=== PATIENT | female | born 1945 | race Caucasian/White ===

== ENCOUNTER 2019-09-26 02:20 | Observation (INO) | payer BC, OTHER ==
[~2019-09-26] VITALS: Ht 157.5 cm; Wt 62.6 kg
[~2019-09-26 02:20] MED LIST: ADVAIR 100-501 EACH; AMLODIPINE BESY10 MG PO; ESIDRIX25 MG PO; GLIMEPIRIDE2 MG PO; LEVOCETIRIZINE D5 MG PO; METFORMIN HCL500 M1; METFORMIN HCL500 M2 PO; METOPROLOL SUCC50 MG PO; RAMIPRIL10 MG; SIMVASTATIN20 MG PO
--- OUTSIDE RECORDS SUMMARY | 2019-09-26 02:23 | XMS REPORT ---
Author Author [facility] Address Unknown Phone Unavailable Care Team Providers Care Group Exercise Class Instructor Name Role Phone Sallie GIBBS Unavailable Unavailable Payers Payer Name Policy Type Policy Number Effective Date Expiration Date Problems This patient has no known problems. Allergies, Adverse Reactions, Alerts Allergy Name Allergy Type Status Severity Reaction(s) Onset Date Inactive Date Treating Clinician Comments No Known Allergies DA Active U 2019-01-05 00:00:00 No Known Contrast Allergies DA Active U 2007-12-11 00:00:00 No Known Drug Allergies DA Active U 2007-12-11 00:00:00 No Known Food Allergies DA Active U 2007-12-11 00:00:00 No Known Other Allergies DA Active U 2007-12-11 00:00:00 Medications This patient has no known medications. Results Test Description Test Time Test Comments Text Results Atomic Results Result Comments GLUBED 2019-01-06 05:49:00 GLUBED (test code=GLUBED) 147 mg/dL 74-106 Performed by certified refinery operator at [facility] ([facility]3] [id number] 01:38:00* Test Item Value Reference Range Comments GLUBED (test code=GLUBED) 223 mg/dL 74-106 Performed by certified refinery operator at [facility] ([facility]3] [id number] 00:20:00* Test Item Value Reference Range Comments GLUBED (test code=GLUBED) 152 mg/dL 74-106 Performed by certified refinery operator at [facility]3] [id number] 22:50:00* Test Item Value Reference Range Comments GLUNIKOLAS (test code=GLUBED) 87 mg/dL 74-106 Performed by certified refinery operator at [facility]3] - XR CHEST 1 [id number] 22:20:00 FAX: Barber Lovelace MD [phone] [place]: St: REG Name: RACHEL COHEN [facility] [place] : [birth year] Age/S: 73/F [address] [facility] Unit #: [id number] Loc: [place] [address] Phys: Barber Lovelace MD Acct: [id number] Dis Date: Status: REG ER PHONE #: [phone] Exam Date: 01/05/20192199 FAX #: [phone] Reason: Altered Mental Status EXAMS: CPT CODE: [id number] XR CHEST 1 V [id number] REASON FOR EXAM: Altered M ental Status EXAM ORDER DATE: 01/05/2019 9:27 PM Samuel lam M.D.: Barber Lovelace MD PROCEDURE: - XR CHEST 1 V COMPARISON: FINDINGS: Portable AP frontal view of the chest obtained at 10:00 PM shows clear lungs. There is no evidence of consolidat ion. There is no evidence of effusion. The heart size is within normal doan its. Pulmonary vasculatures are unremarkable. IMPRESSION: No active disease. Electronically Signed by Salvatore Iraheta on 019 at 2220 Reported and signed by: Sebastian Iraheta M.D. CC: Barber Lovelace MD Tech nologist: JAKE CRUZ Trnscrd Date/Ti me/By: 01/05/2019 (2220) : By: WalterL Orig Print D/T: S: 01/05/2019 (5003) PAGE 1 Signed Report [id number] 22:13:00* Test Item Value Reference Range Comments GLUBED (test code=GLUBED) 50 mg/dL 74-106 Performed by certified refinery operator at [facility]3] COMPREHENSIVE METABOLIC [id number] 21:57:00* Test Item Value Reference Range Comments SODIUM (test code=NA) 142 mmol/L 136-145 POTASSIUM (test code=K) 3.7 mmol/L 3.5-5.1 CHLORIDE (test code=CL) 108.0 mmol/L 98-107 CARBON DIOXIDE (test code=CO2) 23.0 mmol/L 21-32 ANION GAP (test code=GAP) 14.7 10-20 GLUCOSE (test code=GLU) 55 mg/dL 74-106 BLOOD UREA NITROGEN (test code=BUN) 20 mg/dL 7-18 GLOMERULAR FILTRATION RATE (test code=GFR) 49 mL/min >=60 Estimated GFR by using Modified MDRD formula.Chronic kidney disease is defined as either kidney damageor GFR <60 mL/min/1.73 m2 for >3 months. CREATININE (test code=CREAT) 1.10 mg/dL 0.55-1.02 Note change in reference range due to change in reagent. BUN/CREATININE RATIO (test code=BUN/CREA) 17.5 10-20 TOTAL PROTEIN (test code=PROT) 8.2 gram/dL 6.4-8.2 ALBUMIN (test code=ALB) 3.5 g/dL 3.4-5.0 GLOBULIN (test code=GLOB) 4.7 gram/dL 2.7-4.2 ALBUMIN/GLOBULIN RATIO (test code=A/G) 0.7 0.75-1.50 CALCIUM (test code=CA) 8.7 mg/dL 8.5-10.1 BILIRUBIN TOTAL (test code=BILT) 0.20 mg/dL 0.0-1.0 SGOT/AST (test code=AST) 18 IUnit/L 15-37 SGPT/ALT (test code=ALT) 23 IUnit/L 12-78 ALKALINE PHOSPHATASE TOTAL (test code=ALKP) 53 IUnit/L 45-117 Note change in reference range due to change in reagent. CPK-MB [id number] 21:57:00* Test Item Value Reference Range Comments CREATINE KINASE (CK) (test code=CK) 87 IUnit/L 26-208 CKMB (test code=CKMBT) 1.5 ng/mL 0-6.0 RELATIVE % INDEX (test code=REL%) 1.72 % 0.00-2.50 "If the total CK is elevated, the CKMB Fraction must beinterpreted as a Relative % Index, Normal is less than 2.5%"NOTE: Relative % Index is not valid with a normal total CK. [id number] 21:57:00* Test Item Value Reference Range Comments TROPONIN-I (test code=TROPI) <0.015 ng/mL 0-0.045 - CT HEAD/BRAIN W/O [id number] 21:50:00 Name: RACHEL AGUIRRE [facility] [place] [place] : 1945 Age/S: 73 / F [address] [facility] Unit #: [id number] Loc: [place] [address] Phys: Barber Lovelace MD Acct: [id number] Dis Date: Status: PRE ER PHONE #: [phone] Exam Date: 01/05/2019 2140 FAX #: [phone] Reason: Altered Mental Status EXAMS: CPT CODE: [id number] CT HEAD/BRAIN W/O CONT [id number] REASON FOR EXAM: Altered Mental Status EXAM ORDER DATE: 01/05/2019 9:27 PM Ordering MHenny: Barber Lovelace MD PROCEDURE: - CT HEAD/BRAIN W/O CONT COMPARISON: FINDINGS: CT images of the brain were obtained without IV contrast. Dose reduction techniques were applied. Mild patchy low densities appearance of the paraventricular region noted consistent with nonspecific white matter disease. The headley-white matter delineation is unremarkable. The ventricles, cisterns, and sulci are unremarkable. There is no evidence of hemorrhage, mass, mass effect. There is no evidence of acute or old infarct. The calvarium is intact. IMPRESSION: Nonspecific deep white matter disease. No acute findings. at 2150 Reported and signed by: Sebastian Iraheta M.D. CC: Barber Lovelace MD Technologist:Shantelle Ortiz RT(R); SAMIRA Shelby CTDI: DLP: Trnscb Date/Time: 01/05/2019 (2149) [email or web address] Orig Print D/T: S: 01/05/2019 (353) CTDI: LINNETTE: PAGE 1 Signed Report PROTHROMBIN [id number] 21:49:00* Test Item Value Reference Range Comments PROTHROMBIN TIME PATIENT (test code=PTP) 10.4 seconds 9.0-14.0 INTERNATIONAL NORMAL RATIO (test code=INR) 0.9 0.8-1.2 The therapeutic range for oral anticoagulant therapy formost indications is an international normalized ratio (INR)of between 2.0 and 3.0. The recommended therapeutic INRrange for various clinical situations is listed below: Clinical Situation INR range Pulmonary e mbolism treatment (2.0-3.0)Venous thrombosis treatmentVenous thrombosis prophylaxis (high risk surgery)Prevention of systemic embolism from: Acute myocardial infarction Valvular heart disease Atrial fibrillation Mechanical prosthetic heart valves (2.5-3.5) THROMBOPLASTIN TIME [id number] 21:49:00* Test Item Value Reference Range Comments THROMBOPLASTIN TIME PARTIAL (test code=PTT) 30.9 seconds 25.0-36.5 COMPREHENSIVE METABOLIC [id number] 21:45:00* Test Item Value Reference Range Comments SODIUM (test code=NA) 142 mmol/L 136-145 POTASSIUM (test code=K) 3.7 mmol/L 3.5-5.1 CHLORIDE (test code=CL) 108.0 mmol/L 98-107 CARBON DIOXIDE (test code=CO2) mmol/L 21-32 ANION GAP (test code=GAP) 10-20 GLUCOSE (test code=GLU) mg/dL 74-106 BLOOD UREA NITROGEN (test code=BUN) mg/dL 7-18 GLOMERULAR FILTRATION RATE (test code=GFR) mL/min >=60 CREATININE (test code=CREAT) mg/dL 0.55-1.02 BUN/CREATININE RATIO (test code=BUN/CREA) 10-20 TOTAL PROTEIN (test code=PROT) gram/dL 6.4-8.2 ALBUMIN (test code=ALB) g/dL 3.4-5.0 GLOBULIN (test code=GLOB) gram/dL 2.7-4.2 ALBUMIN/GLOBULIN RATIO (test code=A/G) 0.75-1.50 CALCIUM (test code=CA) mg/dL 8.5-10.1 BILIRUBIN TOTAL (test code=BILT) mg/dL 0.0-1.0 SGOT/AST (test code=AST) IUnit/L 15-37 SGPT/ALT (test code=ALT) IUnit/L 12-78 ALKALINE PHOSPHATASE TOTAL (test code=ALKP) IUnit/L 45-117 CPK-MB [id number] 21:45:00* Test Item Value Reference Range Comments CREATINE KINASE (CK) (test code=CK) IUnit/L 26-208 CKMB (test code=CKMBT) ng/mL 0-6.0 RELATIVE % INDEX (test code=REL%) % 0.00-2.50 [id number] 21:45:00* Test Item Value Reference Range Comments TROPONIN-I (test code=TROPI) ng/mL 0-0.045 CBC W/AUTO [id number] 21:37:00* Test Item Value Reference Range Comments WHITE BLOOD CELL (test code=WBC) 8.6 K/mm3 4.5-12.5 RED BLOOD CELL (test code=RBC) 4.58 mill/mm3 3.7-5.2 HEMOGLOBIN (test code=HGB) 12.2 gram/dL 11.5-15.5 HEMATOCRIT (test code=HCT) 39.1 % 36.0-46.0 MEAN CELL VOLUME (test code=MCV) 85.4 fL 80-98 MEAN CELL HGB (test code=MCH) 26.6 picogram 27.0-33.0 MEAN CELL HGB CONCETRATION (test code=MCHC) 31.2 gram/dL 33.0-36.0 RED CELL DISTRIBUTION WIDTH (test code=RDW) 13.6 % 11.6-16.2 RED CELL DISTRIBUTION WIDTH SD (test code=RDW-SD) 42.5 fL 37.0-51.0 PLATELET COUNT (test code=PLT) 298 K/mm3 150-450 MEAN PLATELET VOLUME (test code=MPV) 10.8 fL 6.7-11.0 NEUTROPHIL % (test code=NT%) 70.5 % 39.0-69.0 IMMATURE GRANULOCYTE % (test code=IG%) 0.6 % 0.0-5.0 LYMPHOCYTE % (test code=LY%) 18.6 % 25.0-55.0 MONOCYTE % (test code=MO%) 7.6 % 0.0-10.0 EOSINOPHIL % (test code=EO%) 2.0 % 0.0-5.0 BASOPHIL % (test code=BA%) 0.7 % 0.0-1.0 NUCLEATED RBC % (test code=NRBC%) 0.0 % 0-0 NEUTROPHIL # (test code=NT#) 6.06 K/mm3 1.8-7.7 IMMATURE GRANULOCYTE # (test code=IG#) 0.05 x10 3/uL 0-0.03 LYMPHOCYTE # (test code=LY#) 1.60 K/mm3 1.0-5.0 MONOCYTE # (test code=MO#) 0.65 K/mm3 0-0.8 EOSINOPHIL # (test code=EO#) 0.17 K/mm3 0.0-0.5 BASOPHIL # (test code=BA#) 0.06 K/mm3 0.0-0.2 NUCLEATED RBC # (test code=NRBC#) 0.00 K/mm3 0.0-0.1 CBC W/AUTO [id number] 21:35:00* Test Item Value Reference Range Comments WHITE BLOOD CELL (test code=WBC) K/mm3 4.5-12.5 RED BLOOD CELL (test code=RBC) mill/mm3 3.7-5.2 HEMOGLOBIN (test code=HGB) 12.2 gram/dL 11.5-15.5 HEMATOCRIT (test code=HCT) 39.1 % 36.0-46.0 MEAN CELL VOLUME (test code=MCV) fL 80-98 MEAN CELL HGB (test code=MCH) picogram 27.0-33.0 MEAN CELL HGB CONCETRATION (test code=MCHC) gram/dL 33.0-36.0 RED CELL DISTRIBUTION WIDTH (test code=RDW) % 11.6-16.2 RED CELL DISTRIBUTION WIDTH SD (test code=RDW-SD) fL 37.0-51.0 PLATELET COUNT (test code=PLT) K/mm3 150-450 MEAN PLATELET VOLUME (test code=MPV) fL 6.7-11.0 NEUTROPHIL % (test code=NT%) % 39.0-69.0 IMMATURE GRANULOCYTE % (test code=IG%) % 0.0-5.0 LYMPHOCYTE % (test code=LY%) % 25.0-55.0 MONOCYTE % (test code=MO%) % 0.0-10.0 EOSINOPHIL % (test code=EO%) % 0.0-5.0 BASOPHIL % (test code=BA%) % 0.0-1.0 NEUTROPHIL # (test code=NT#) K/mm3 1.8-7.7 LYMPHOCYTE # (test code=LY#) K/mm3 1.0-5.0 MONOCYTE # (test code=MO#) K/mm3 0-0.8 EOSINOPHIL # (test code=EO#) K/mm3 0.0-0.5 BASOPHIL # (test code=BA#) K/mm3 0.0-0.2 SCR MAMM BILATERAL AURELIA CAD [id number] 18:54:15 - SCR MAMM BILATERAL AURELIA CAD DIGITALBILATERAL DIGITAL SCREENING MAMMOGRAM 3D/2D WITH CAD: 11/04/2018CLINICAL: Asymptomatic. Digital breast tomosynthesis was performed in addition to routine CC and MLO views. Current mammographic images were evaluated by either a Btarget M-Vu or a InPronto ImageChecker CAD (computer aided detection system). Comparison is made to exams dated 11/15/2010 mammogram, 09/16/2009 mammogram, and 07/11/2009 mammogram - [facility]. There are scattered fibroglandular tissues in both breasts. There are benign calcific ations in both breasts. No suspicious mass, architectural distortion, malignant type calcification, or lymph node abnormality detected. Breast architecture is stable compared to prior exams.IMPRESSION: BENIGNThere is no mammographic evide nce of malignancy. Resume annual screening mammography in one year. Jackie henson/penrad:11/07/2018 18:54:15 [employer] Operator: Lisbeth REYNA, [facility]-FWletter sent: BIRADS 1-2 Normal Mammogram BI-RADS: [address] [facility] [address] [address] Patient Name: RACHEL AGUIRRE MR #: [id number] : 1945 Age/Sex: 71/F Req #: [id number] Adm Physician: Ordered by: AILYN OAKLEY NP Report #: [id number] Location: ER Room/Bed: Procedure: [id number] CT/CT BRAIN WO Exam Date: Exam Time: 1944 REPORT STATUS: Signed History:Fell, hit the head Comparison studies:None Technique: Axial im ages were obtained from the brain and cervical spine. Coronal and sagittal cruz ges reconstructed from the axial data. Intravenous contrast: None Finding s: Scalp/skull: Left frontal scalp laceration. Extra-axial spaces: No masses. No fluid collections. Brain sulci: Mildly prominent. Ventr icles: Mild compensatory dilatation. No hydrocephalus. Parenchyma: Few h ypodensities in the supratentorial white matter are small vessel ischemic hart ges. No masses, hemorrhage, acute or chronic cortical vascular insults. Aditi lar/suprasellar region: No abnormalities. Craniocervical junction: Patent fora men magnum. No Chiari one malformation. Incidental findings: Atheroscler otic calcifications in the carotid siphons . Bilateral cataract surgery change s. Right canal wall down mastoidectomy changes with partial opacification of t he mastoid air cells. Cervical spine CT: Fractures: None. Soft tis sues: No gross abnormalities. Atlantoaxial articulation: Intact. Alignmen t: Normal lordosis. No scoliosis. Cervicomedullary junction: No abnormalities. Patent foramen magnum. Vertebrae: No infection or neoplasm. Degene rative changes: Decreased intervertebral space, bilateral uncinate process hy pertrophy and facet hypertrophy at C5-6 results in no significant canal stenos is and mild bilateral foraminal narrowing. Incidental findings: None IMPRESSION: Head CT: No acute intracranial abnormalities. Left pa rietal scalp laceration. Chronic findings: 1. Mild generalized volume lo ss. 2. Mild supratentorial white matter small vessel ischemic changes. C ervical spine CT: 1. No abnormalities. 2. Cannot exclude ligament, spinal cord and or vascular abnormalities on the basis of this examination. Signed by: DR Diego Teran M.D. on 09/18/2017 9:01 PM Dictated By: DIEGO WHITE MD 00 COPY TO: SADA OAKLEY NP CT CERVICAL SPINE WO [place] [address] Patient Name: RACHEL AGUIRRE MR #: [id number] : 1945 Age/Sex: 71/F Req #: [id number] Adm Physician: Ordered by: AILYN OAKLEY NP Report #: [id number] Location: ER Room/Bed: Procedure: [id number] CT/CT CERVICAL SPINE WO Exam Date: 09/18/17 Exam Time: 1944 REPORT STATUS: Signed History:Fell, hit the head Comparison studies:None Technique: Axial images were obtained from the brain and cervical spine. Coronal and sag ittal images reconstructed from the axial data. Intravenous contrast: None Findings: Scalp/skull: Left frontal scalp laceration. Extra-axial spaces: No masses. No fluid collections. Brain sulci: Mildly prominent. Ventricles: Mild compensatory dilatation. No hydrocephalus. Parenchyma: Few hypodensities in the supratentorial white matter are small vessel ischemic changes. No masses, hemorrhage, acute or chronic cortical vascular insults. Sellar/suprasellar region: No abnormalities. Craniocervical junction: Patent foramen magnum. No Chiari one malformation. Incidental findings: At herosclerotic calcifications in the carotid siphons . Bilateral cataract surge ry changes. Right canal wall down mastoidectomy changes with partial opacifica tion of the mastoid air cells. Cervical spine CT: Fractures: None. Soft tissues: No gross abnormalities. Atlantoaxial articulation: Intact. Alignment: Normal lordosis. No scoliosis. Cervicomedullary junction: No abnor malities. Patent foramen magnum. Vertebrae: No infection or neoplasm. Degenerative changes: Decreased intervertebral space, bilateral uncinate p rocess hypertrophy and facet hypertrophy at C5-6 results in no significant can al stenosis and mild bilateral foraminal narrowing. Incidental findings: None IMPRESSION: Head CT: No acute intracranial abnormalities. Left parietal scalp laceration. Chronic findings: 1. Mild generalized volume loss. 2. Mild supratentorial white matter small vessel ischemic change s. Cervical spine CT: 1. No abnormalities. 2. Cannot exclude ligament , spinal cord and or vascular abnormalities on the basis of this examination. Signed by: DR Diego Teran M.D. on 09/18/2017 9:01 PM Dictated By: DIEGO WHITE MD 00 Transcribed By: SONIA on 09/18/172100 COPY TO: AILYN OAKLEY NP
[2019-09-26] MEDS ORDERED: OCTREOTIDE ACETATE 0.05 MG/ML AMP SQ ONE (02:45)
[2019-09-26] MEDS ORDERED: DEXTROSE 5%/0.45% SOD CHL 1,000 ML IV ONE (02:45)
[2019-09-26] MEDS ORDERED: DEXTROSE 50% SYRINGE 50 ML IV ONE (02:45)
[2019-09-26 03:12] LABS: BASOPHILS # (AUTO) 0.1 (0.0-0.1); BASOPHILS % 0.7 % (0.0-1.0); EOSINOPHILS # (AUTO) 0.2 (0.0-0.4); HEMATOCRIT 40.9 % (34.2-44.1); HEMOGLOBIN 12.6 g/dL (12.0-16.0); LYMPHOCYTES # (AUTO) 1.3 (1.0-3.2); MEAN CORPUSCULAR HEMOGLOBIN 26.5 pg (28-32); MEAN CORPUSCULAR HGB CONC 30.8 g/dL (31-35); MEAN CORPUSCULAR VOLUME 86.1 fL (81-99); MONOCYTES # (AUTO) 0.7 (0.2-0.8); MONOCYTES % 6.2 % (4.4-11.3); NEUTROPHILS # (AUTO) 8.8 (2.1-6.9); NEUTROPHILS % 78.3 % (38.7-80.0); PLATELET COUNT 280 x10e3/uL (140-360); RED BLOOD COUNT 4.75 x10e6/uL (3.6-5.1); RED CELL DISTRIBUTION WIDTH 14.1 % (11.7-14.4)
[2019-09-26 03:24] LABS: INR 0.76; PROTHROMBIN TIME 11.1 seconds (11.9-14.5)
[2019-09-26 03:25] LABS: PARTIAL THROMBOPLASTIN TIME 28.4 seconds (23.8-35.5)
[2019-09-26 03:30] LABS: ALANINE AMINOTRANSFERASE 17 IU/L (0-55); ALKALINE PHOSPHATASE 48 IU/L (40-150); ANION GAP 17.8 mmol/L (8-16); BLOOD UREA NITROGEN 13 mg/dL (7-26); BUN/CREATININE RATIO 12 (6-25); CALCIUM 10.1 mg/dL (8.4-10.2); CARBON DIOXIDE 23 mmol/L (22-29); CHLORIDE 104 mmol/L (98-107); CREATINE KINASE 58 IU/L (29-168); CREATININE, SERUM 1.13 mg/dL (0.57-1.11); EST GLOMERULAR FILTRATION RATE 47 ML/MIN (60-); GLUCOSE 83 mg/dL (74-118); MAGNESIUM 1.7 MG/DL (1.3-2.1); POTASSIUM 3.8 mmol/L (3.5-5.1); SODIUM 141 mmol/L (136-145)
--- NOTE | 2019-09-26 03:31 | Diagnostic Imaging Report ---
EXAMINATION: CHEST SINGLE (PORTABLE) INDICATION: Hypoglycemia. COMPARISON: None FINDINGS: TUBES and LINES: None. LUNGS: Lungs are well inflated. There is no evidence of pneumonia or pulmonary edema. PLEURA: No pleural effusion or pneumothorax. HEART AND MEDIASTINUM: The cardiomediastinal silhouette is unremarkable. There are atherosclerotic calcifications within the aorta. Tortuous thoracic aorta. BONES AND SOFT TISSUES: No acute osseous lesion. Soft tissues are unremarkable. UPPER ABDOMEN: No free air under the diaphragm. IMPRESSION: No acute radiographic abnormality. Signed by: Dr. Que Trevizo MD on 09/26/2019 3:27 AM
[2019-09-26] MEDS ORDERED: DEXTROSE 50% SYRINGE 50 ML IV PRN (04:45)
[2019-09-26] MEDS ORDERED: ONDANSETRON HCL INJ 2MG/ML 2ML 2 MG/ML VIAL IV PRN (04:45)
[2019-09-26] MEDS ORDERED: CEFTRIAXONE SOD 1 GM/NS 50 ML 50 ML IV ONE (04:45)
[2019-09-26 04:49] LABS: BILIRUBIN,URINE NEGATIVE (NEGATIVE); CLARITY,URINE CLEAR (CLEAR); COLOR,URINE YELLOW (YELLOW); KETONES,URINE NEGATIVE (NEGATIVE); LEUKOCYTE ESTERASE ,URINE SMALL (NEGATIVE); NITRITE,URINE NEGATIVE (NEGATIVE); PROTEIN,URINE DIPSTICK 1+ (NEGATIVE); URINE UROBILINOGEN 0.2 mg/dL (0.2 - 1)
[2019-09-26 04:59] LABS: BACTERIA,URINE MODERATE /HPF; EPITHELIAL CELLS,URINE MANY /LPF
--- NOTE | 2019-09-26 05:40 | NUR ---
Received report from ER nurse.
--- NOTE | 2019-09-26 05:41 | NUR ---
Patient arrived to floor via w/c.
[2019-09-26 06:10] VITALS: BP 175/74
[2019-09-26 06:26] VITALS: BP 175/74
[2019-09-26] MEDS ORDERED: BUPROPION XL150 MG PO (06:47)
[2019-09-26] MEDS ORDERED: BENICAR20 MG PO (06:53)
[2019-09-26] MEDS ORDERED: ST. JOSEPH ASPI81 M2 PO (06:54)
[2019-09-26] MEDS ORDERED: CALCIUM 500+D1 EACH PO (06:55)
[2019-09-26] MEDS ORDERED: ACETAMINOPHEN325 M1 PO (06:58)
[2019-09-26] MEDS ORDERED: CRESTOR10 MG PO (06:59)
[2019-09-26] MEDS ORDERED: ALENDRONAT70 MG/75 M PO (07:02)
[2019-09-26] MEDS ORDERED: ULTRAM50 MG PO (07:03)
[2019-09-26] MEDS ORDERED: VITAMIN D1000 UNI1 PO (07:05)
[2019-09-26 07:21] VITALS: BP 156/68
--- NOTE | 2019-09-26 07:33 | NUR ---
Patient Admit completed. Report to incoming nurse.
[2019-09-26] MEDS ORDERED: GLIMEPIRIDE2 MG PO (07:49)
[2019-09-26 08:11] VITALS: BP 156/68
[2019-09-26 11:21] LABS: CREATINE KINASE 51 IU/L (29-168)
[2019-09-26 11:22] VITALS: BP 157/68
[2019-09-26 15:24] VITALS: BP 158/93
[2019-09-26] MEDS ORDERED: KEFLEX500 MG PO (15:53)
--- NOTE | 2019-09-26 15:53 | Discharge Summary ---
Please review my brief history and physical on the same date of admit and discharge. The patient was discharged home today. Follow up with Dr. Rush Nicole next week. She will hold off on the glimepiride for now. Resume all the home medications except for HCTZ and ramipril. The patient is already on Benicar for her blood pressure. The patient is otherwise stable, discharged home today. MD SHANE Jolley/YUE /[id number]
--- NOTE | 2019-09-26 16:04 | History and Physical ---
PRIMARY CARE PHYSICIAN: Rush Nicole MD CHIEF COMPLAINT: Low blood sugar. HISTORY: A 73-year-old female, apparently saw a nurse practitioner of Dr. Rush Nicole. The patient in the office blood sugar was over 400, apparently, she was eating lunch and at 2 p.m. per patient all information here that the patient blood sugar was elevated; therefore, she basically went home with increase in dosing of metformin and also add on glimepiride. The patient came in with low blood sugar at home and then subsequently much improved, now blood sugars stabilized. Last blood sugar was 203. On admission, the patient's blood sugar was 74. The patient is otherwise stable. Cardiac enzymes are negative. Renal function slightly dehydrated. BUN and creatinine of 13 and 1.1 respectively. The patient is otherwise, stable back to baseline. No chest pain or shortness of breath. PAST MEDICAL HISTORY: Diabetes type 2, hypertension, osteoporosis, osteoarthritis, dyslipidemia, anxiety disorder. PAST SURGICAL HISTORY: Noncontributory. SOCIAL HISTORY: The patient does not smoke or use alcohol. No regular drugs. ALLERGIES: NO KNOWN ALLERGIES. HOME MEDICATIONS: List reviewed. The patient is on Tylenol, alendronate, Norvasc, aspirin, bupropion, vitamin D3, Advair, Zyrtec, metformin 500 mg 3 times a day, metoprolol succinate, omeprazole, Crestor, simvastatin, tramadol. PHYSICAL EXAMINATION: VITAL SIGNS: Temperature is 98, blood pressure 157/68, pulse rate 74, and respirations 18. GENERAL: The patient is not in acute distress, she is awake. HEENT: Normocephalic, atraumatic. Anicteric. NECK: Supple grossly. PULMONARY: Clear. CARDIOVASCULAR: Regular rhythm. ABDOMEN: Soft and unremarkable. EXTREMITIES: No cyanosis or edema. NEUROLOGIC: No gross focal deficit. LABORATORY DATA: Sodium is 141, potassium 3.8, chloride 104, bicarb 23, BUN 13, creatinine 1.1, glucose is 83. WBC is 11.1, hemoglobin 12.6, hematocrit 40.9, and platelets is 280. IMPRESSION: 1. Hypoglycemia, most likely secondary to glimepiride was given to the patient. 2. Slight urinary tract infection. PLAN: Discharge home. Continue with home medication except for HCTZ and glimepiride. The patient will follow up with Dr. Rush Nicole next week for adjustment of medication. I am not sure how much in the glimepiride of the patient was taken at home, but for now, the patient she was stopped and continued with metformin only. The patient is also instructed to take the glimepiride if she have increase in her oral intake. The patient will check the blood sugar before meals, but not after meal for management of her diabetes for now. Discussed with the patient at length. We will give the patient Keflex 500 mg 3 times a day for 7 days for the slight urinary tract infection. The patient is otherwise stable, discharged home today. Follow up with Dr. Rush Nicole in next week. MD SHANE Jolley/YUE /[id number]
--- NOTE | 2019-09-26 16:31 | NUR ---
patient discharged home, prescription given, IV canula removed with tip intact. Denies any pain, no distress noted, daughter at bed side, [facility]
== END 2019-09-26 16:22 | disposition home or self-care (01) ==
LOC: ER 02:20 → ERHOLD 04:54 → MED/SURG2 05:45
PROVIDERS: ADMIT Internal Medicine; ATTEND Internal Medicine
DX: E11.649 Type 2 diabetes mellitus with hypoglycemia without coma (principal); Z79.4 Long term (current) use of insulin; N39.0 Urinary tract infection, site not specified; M81.0 Age-related osteoporosis without current pathological fracture; M19.90 Unspecified osteoarthritis, unspecified site; F41.9 Anxiety disorder, unspecified
CPT/HCPCS: 36415; 71045; 80053; 81001; 82550; 82553; 82948; 83735; 84484; 85025; 85610; 85730; 87086; 93005; 99284; G0378; J0696; J2354; J7799